=== PATIENT | female | born 1995 | race Caucasian/White ===

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

== ENCOUNTER 2017-10-28 11:35 | Emergency (ER) | payer SELFPAY ==
--- NOTE | 2017-10-28 12:41 | ED ---
HPI Febrile Illness - HPI Summary HPI Summary: This is [facility] documenting for attending Farzad Holt This is [facility] documenting for attending Farzad Johnson MD. Pt is a 22 y/o F c/o flu- like Sx onset 4 days ago. Assoc Sx: EID, N/V. Denies: CP, cough. - History of Current Complaint Chief Complaint: EDUrogenitalProblems Hx Obtained From: Patient Onset/Duration: Started Days Ago Timing: Constant Current Severity: Moderate Pain Intensity: 5 Pain Scale Used: 0-10 Numeric Associated Signs and Symptoms: Negative - CP, cough., Headache, Nausea, Vomiting - Allergy/Home Medications Allergies/Adverse Reactions: Allergies Allergy/AdvReac Type Severity Reaction Status Date / Time Cephalosporins Allergy Hives/Diff. Verified 10/28/17 11:45 Breathing/I tching Home Medications: Home Medications Cranberry 1 cap PO DAILY 10/28/17 [History Confirmed 10/28/17] Multivitamins/Minerals TAB* [Theragran/minerals TAB*] 1 tab PO DAILY 10/28/17 [ History Confirmed 10/28/17] Sulfamethox/Trimethoprim DS* [Bactrim DS 800/160 TAB*] 1 tab PO BID 10/28/17 [ History Confirmed 10/28/17] PMH/Surg Hx/FS Hx/Imm Hx Endocrine/Hematology History: Denies: Hx Anticoagulant Therapy Cardiovascular History: Denies: Hx Hypertension Respiratory History: Denies: Hx Chronic Obstructive Pulmonary Disease (COPD) History: Reports: Other Problems/Disorders - pyel Infectious Disease History: No Infectious Disease History: Denies: Traveled Outside the [place] in Last 30 Days - Family History Known Family History: Negative: Cardiac Disease - Social History Occupation: Student Lives: With Family Alcohol Use: None Hx Substance Use: No Substance Use Type: Reports: None Hx Tobacco Use: No Smoking Status (MU): Never Smoked Tobacco Review of Systems Negative: Fever Negative: Chest Pain Negative: Cough Positive: Vomiting, Nausea Positive: Headache All Other Systems Reviewed And Are Negative: Yes Physical Exam - Summary Physical Exam Summary: Constitutional: Well-developed, Well-nourished, Alert. (-) Distressed Skin: Warm, Dry HENT: Normocephalic; Atraumatic Eyes: Conjunctiva normal Neck: Musculoskeletal ROM normal neck. (-) JVD, (-) Stridor, (-) Tracheal deviation Cardio: Rhythm regular, rate normal, Heart sounds normal; Intact distal pulses; The pedal pulses are 2+ and symmetric. Radial pulses are 2+ and symmetric. (-) Murmur Pulmonary/Chest wall: Effort normal. (-) Respiratory distress, (-) Wheezes, (-) Rales Abd: Soft, (-), epigastric tenderness, (-) Distension, (-) Guarding, (-) Rebound Musculoskeletal: (-) Edema, R-sided CVA tenderness Lymph: (-) Cervical adenopathy Neuro: Alert, Oriented x3 Psych: Mood and affect Normal Triage Information Reviewed: Yes Vital Signs On Initial Exam: Initial Vitals Temp Pulse Resp BP Pulse Ox 97.9 F 90 16 111/69 99 10/28/17 11:41 10/28/17 11:41 10/28/17 11:41 10/28/17 11:41 10/28/17 11:41 Vital Signs Reviewed: Yes Diagnostics - Vital Signs Vital Signs Temp Pulse Resp BP Pulse Ox 10/28/17 11:41 97.9 F 90 16 111/69 99 - Laboratory Result Diagrams: 10/28/17 12:48 10/28/17 12:48 Lab Statement: Any lab studies that have been ordered have been reviewed, and results considered in the medical decision making process. - Ultrasound No standard instances Ultrasound Interpretation: Positive (See Comments) - IMPRESSION: NORMAL KIDNEYS AND BLADDER. 3.7 CM LEFT OVARIAN CYST. SUGGEST FOLLOW-UP Ultrasound Interpretation Completed By: Radiologist - report has been reviewed by provider. Re-Evaluation - Re-Evaluation First Eval Re-Evaluation Time: 15:32 Change: Improved Comment: Declined admission to [facility] Course/Dx - Course Course Of Treatment: Changed ABX to cipro which is known to cause sensitivity. - Diagnoses Provider Diagnoses: Pyelonephritis Discharge - Sign-Out/Discharge Documenting (check all that apply): Patient Departure - Discharge Plan Condition: Stable Disposition: HOME Prescriptions: Ciprofloxacin TAB* [Cipro 500 MG TAB*] 500 mg PO BID #20 tab Ketorolac TAB * [Toradol TAB *] 10 mg PO Q6H #15 tab Ondansetron ODT TAB* [Zofran 4 MG Odt TAB*] 4 mg PO Q8H PRN #12 tab.odt PRN Reason: Nausea/Vomiting Patient Education Materials: Kidney Infection (ED) Referrals: No Primary Care Phys,NOPCP [Primary Care Provider] - [facility] [place] PHYSICIAN REFERRAL [Outside] Additional Instructions: RETURN TO THE EMERGENCY DEPARTMENT FOR CHANGING OR WORSENING SYMPTOMS - Billing Disposition and Condition Condition: STABLE Disposition: Home
[2017-10-28] MEDS ORDERED: Ketorolac INJ* 30 MG/ML 1 ML VIAL IV PUSH ONE (12:47)
[2017-10-28 13:14] LABS: ABS Basophils 0 10^3/ul (0-0.2); ABS Eosinophils 0 10^3/ul (0-0.6); ABS Lymphocytes 1.2 10^3/ul (1.0-4.8); ABS Monocytes 1.1 10^3/ul (0-0.8); ABS Neutrophils 7.6 10^3/ul (1.5-7.7); ABS Nucleated RBC 0 10^3/ul; Eosinophil % 0 % (0-6); Hematocrit 38 % (35-47); Lymphocyte % 11.9 % (25-47); Mean Corpuscular HGB Conc 34 g/dl (31-36); Mean Corpuscular Hemoglobin 29 pg (27-31); Mean Corpuscular Volume 86 fL (80-97); Mean Platelet Volume 7.2 um3 (7.4-10.4); Nucleated Red Blood Cells % 0; Platelet Count 221 10^3/ul (150-450); Red Blood Count 4.43 10^6/ul (4.00-5.40); Red Cell Distribution Width 12 % (10.5-15); White Blood Count 9.9 10^3/ul (3.5-10.8)
[2017-10-28 13:25] LABS: EGFR Non-African American 69.1 (>60)
[2017-10-28] MEDS: NS 0.9% 1000 ML* 2,000 ML IV ONE ×2 (13:40→14:45)
--- NOTE | 2017-10-28 14:45 | RAD ---
INDICATION: CVA tenderness COMPARISON: None TECHNIQUE: Longitudinal and transverse scans of the kidneys and bladder were obtained. FINDINGS: Kidneys: The kidneys are normal in size and echogenicity. No renal masses, calculi, or hydronephrosis is seen. The right kidney measures 11.3 x 4.6 x 5.1 cm and the left kidney 10.3 x 5.6 x 5.4 cm. Bladder: The bladder is partially distended. There are no intrinsic or extrinsic masses. The prevoid volume is 637 ml and the postvoid volume is 4 ml. Ureteral jets are document bilaterally. Other: There is a large left ovarian cyst measuring 3.7 x 1.7 x 2.3 cm. There is flow to the left ovary up on Doppler interrogation IMPRESSION: NORMAL KIDNEYS AND BLADDER. 3.7 CM LEFT OVARIAN CYST. SUGGEST FOLLOW-UP
[2017-10-28] MEDS ORDERED: Ciprofloxacin 400MG IVPREMIX(* 400 MG/200 ML BAG IVPB ONE (15:25)
[2017-10-28 15:48] LABS: Urine Appearance Cloudy; Urine Blood Negative (Negative); Urine Color Straw; Urine Ketones Negative (Negative); Urine Protein Negative (Negative); Urine Red Blood Cell Trace(0-2/hpf) (Absent); Urine Specific Gravity 1.002 (1.010-1.030); Urine Urobilinogen Negative (Negative); Urine White Blood Cell 1+(6-10/hpf) (Absent)
[2017-10-28 17:49] VITALS: BP 106/67
--- NOTE | 2017-11-01 06:33 | PN ---
Progress Note - Progress Note Date of Service: 11/01/17 Note: Patient's urine culture grew esbl Escherichia coli 10-25,000. Patient placed on Cipro which final culture shows is sensitive to all. No further action required.
== END 2017-10-28 17:49 | disposition home or self-care (01) ==
LOC: ED 11:35
DX: N10 Acute pyelonephritis (principal); B96.20 Unspecified Escherichia coli [E. coli] as the cause of diseases classified elsewhere; Z88.1 Allergy status to other antibiotic agents
CPT/HCPCS: 36415; 76770; 80053; 81003; 81015; 83605; 85025; 87040; 87077; 87086; 87186; 96365; 96375; 99283; J0744; J1885